=== PATIENT | male | born 1960 | race Caucasian/White ===

== ENCOUNTER 2016-07-04 17:18 | Emergency (ER) | payer MEDICAID, OTHER ==
[~2016-07-04] VITALS: Ht 188 cm; Wt 122.7 kg
[~2016-07-04 17:18] MED LIST: DSS100 PO; INSLAN SQ; LISI-662 PO; METF500T4 PO; PERCT PO; TRAM50TA4 PO
[2016-07-04 18:02] LABS: GLUCOSE COMMENT 1 Repeated; GLUCOSE,POINT OF CARE 372 MG/DL (70-110)
[2016-07-04] MEDS ORDERED: LIDOCAINE HCL BUFFERED 1% W/EPI 1:100,000 20 ML VIAL INJ ONE (21:00)
[2016-07-04] MEDS ORDERED: LIDOCAINE HCL/PF 1% 2 ML VIAL IM ONE (22:15)
[2016-07-04] MEDS ORDERED: KETOROLAC TROMETHAMINE 30 MG/ML VIAL IVP ONE (22:15)
[2016-07-04] MEDS ORDERED: CefTRIAXone SODIUM 1 GM/VIAL IV ONE (22:15)
[2016-07-04] MEDS ORDERED: CefTRIAXone SODIUM 2 GM in DEXTROSE 5%-WATER 50 ML IV ONE (22:45)
[2016-07-04 23:20] VITALS: BP 146/89
== END 2016-07-04 23:38 | disposition home or self-care (01) ==
LOC: EMS 17:19
DX: M27.2 Inflammatory conditions of jaws (principal); E11.65 Type 2 diabetes mellitus with hyperglycemia; F17.210 Nicotine dependence, cigarettes, uncomplicated; Z79.4 Long term (current) use of insulin
CPT/HCPCS: 10061; 82962; 96365; 96375; 99284; J0696; J1885; J3490 ×2; J7060